=== PATIENT | male | born 1985 | race Caucasian/White ===

== ENCOUNTER 2021-04-14 08:25 | Inpatient (IN) | payer OTHER ==
[~2021-04-14 08:25] MED LIST: Dexamethasone 4 MG/ML SDV ONE; Glycopyrrolate 0.2 MG/ML 5 ML MDV ONE; Neostigmine Methylsulfate 1 MG/ML 5 ML Syringe ONE; Ondansetron 4 MG/2 ML SDV ONE; Propofol 200 MG/20 ML SDV ONE; Rocuronium 50 MG/5 ML Vial ONE; Succinylcholine 200 MG/10 ML MDV ONE; cefOXitin 2 GM Vial ONE; fentaNYL 250 MCG/5 ML SDV ONE
[2021-04-14] MEDS ORDERED: Acetaminophen 500 MG Tab PO ONE (08:45)
[2021-04-14] MEDS ORDERED: Scopolamine 1.5 MG Transdermal Patch TOP ONE (08:45)
[2021-04-14] MEDS: Celecoxib 200 MG Cap PO SCH ×2 (08:52→15:14)
[2021-04-14] MEDS ORDERED: Dextrose 5%-Lactated Ringers 1,000 ML IV SCH ×2 (09:30→16:00)
[2021-04-14] MEDS ORDERED: cefOXitin 2 GM in Sodium Chloride 0.9% 50 ML IV ONE (10:00)
[2021-04-14] MEDS ORDERED: Ketamine 22 MG in Sodium Chloride 0.9% 19.78 ML IV SCH (10:15)
[2021-04-14] MEDS ORDERED: Ketamine 500 MG/5 ML MDV IV SCH (10:15)
[2021-04-14] MEDS ORDERED: fentaNYL 250 MCG/5 ML SDV ONE (11:35)
[2021-04-14] MEDS ORDERED: Lactated Ringers 1,000 ML ONE (11:52)
[2021-04-14] MEDS ORDERED: Rocuronium 50 MG/5 ML Vial ONE (12:06)
[2021-04-14] MEDS ORDERED: Labetalol 20 MG/4 ML Syringe ONE (12:26)
[2021-04-14] MEDS ORDERED: hydrOXYzine HCL 100 MG/2 ML SDV IM ONE (14:11)
[2021-04-14] MEDS ORDERED: fentaNYL 100 MCG/2 ML SDV IVPUSH ONE (14:11)
[2021-04-14] MEDS ORDERED: Insulin Lispro 100 Unit/ML 3 ML KwikPen SUBCUT ONE (14:15)
[2021-04-14] MEDS ORDERED: 50% Dextrose in Water 50 ML Syringe IVPUSH PRN (14:15)
[2021-04-14] MEDS ORDERED: Glucagon,Human Recombinant 1 MG Vial IM PRN (14:15)
[2021-04-14] MEDS ORDERED: HYDROmorphone 0.5 MG/0.5 ML Syringe IVPUSH PRN (15:05)
[2021-04-14] MEDS ORDERED: HYDROmorphone 1 MG/ML Syringe IV PRN (15:07)
[2021-04-14] MEDS ORDERED: hydrOXYzine HCL 100 MG/2 ML SDV IM PRN (15:08)
[2021-04-14] MEDS ORDERED: Cyclobenzaprine 10 MG Tab PO PRN (15:58)
[2021-04-14] MEDS ORDERED: traMADol 50 MG Tab PO PRN (16:00)
[2021-04-14] MEDS ORDERED: Metoclopramide 10 MG/2 ML SDV IVPUSH PRN (16:00)
[2021-04-14] MEDS ORDERED: Pantoprazole 40 MG Vial IVPUSH SCH (16:00)
[2021-04-14] MEDS ORDERED: Acetaminophen 500 MG Tab PO PRN (16:00)
[2021-04-14] MEDS ORDERED: Labetalol 20 MG/4 ML Syringe IVPUSH PRN (16:00)
[2021-04-14] MEDS ORDERED: diphenhydrAMINE 50 MG/ML SDV IVPUSH PRN (16:00)
[2021-04-14] MEDS ORDERED: Calcium Gluconate 10% 1 GM/10 ML SDV IVPUSH PRN (16:00)
[2021-04-14] MEDS ORDERED: Ondansetron 4 MG/2 ML SDV IVPUSH PRN (16:00)
[2021-04-14] MEDS ORDERED: Lactated Ringers 1,000 ML IV SCH (16:30)
[2021-04-14] MEDS: Insulin Lispro 100 Unit/ML 3 ML KwikPen SUBCUT SCH ×2 (16:31→21:31)
[2021-04-14] MEDS: cefOXitin 2 GM in Sodium Chloride 0.9% 50 ML IV SCH ×2 (16:47→21:31)
[2021-04-14] MEDS: oxyCODONE 5 MG Tab PO PRN (17:29)
[2021-04-14] MEDS ORDERED: MVI, Adult with Vitamin K 10 ML, Thiamine 200 MG, Zinc/Copper/Manganese/Selenium 1 ML i... IV SCH ×4 (18:00)
[2021-04-14] MEDS ORDERED: Heparin Sodium 5,000 Units/ML Vial SUBCUT SCH (18:00)
[2021-04-14] MEDS: Heparin Sodium 5,000 Units/ML Vial SUBCUT SCH (18:33)
[2021-04-14] MEDS ORDERED: Ketorolac 30 MG/ML SDV IM ONE (21:16)
[2021-04-14] MEDS: Acetaminophen 500 MG Tab PO SCH (22:08)
[2021-04-15] MEDS: Heparin Sodium 5,000 Units/ML Vial SUBCUT SCH ×3 (01:40→17:00)
[2021-04-15] MEDS: oxyCODONE 5 MG Tab PO PRN ×2 (03:48→11:41)
[2021-04-15] MEDS: cefOXitin 2 GM in Sodium Chloride 0.9% 50 ML IV SCH ×4 (04:00→21:13)
[2021-04-15] MEDS: Acetaminophen 500 MG Tab PO SCH ×3 (06:00→21:11)
[2021-04-15] MEDS ORDERED: Iopamidol 612 MG/ML 50 ML SDV PO STA ×2 (06:26→06:52)
[2021-04-15] MEDS ORDERED: Ondansetron 4 MG Tab.DIS PO PRN (06:29)
--- NOTE | 2021-04-15 07:27 | PN ---
DATE OF SERVICE: 04/15/2021 SUBJECTIVE: Ge is postop day 1. Upper GI was normal. Vital signs have been normal. Low-grade temperature of 99.7, his temperature max. He has been up ambulating and using his incentive spirometer. Intake 500. Urine output 2750. JACQUI drain put out 150 mL of a light pink drainage. Blood sugars since admission have been 214, 226, 281, 266 and his last one was 269. Remainder of review of systems negative for any pertinent positives or negatives. OBJECTIVE: GENERAL: Ge Aguirre is a pleasant 36-year-old male. He is alert and orientated. HEENT: Negative. NECK: Supple. HEART: Regular rate and rhythm. LUNGS: Clear. ABDOMEN: Dressing dry and intact. Abdominal binder is on. JACQUI drain intact. EXTREMITIES: Without peripheral edema. ASSESSMENT: Diagnostic laparoscopy with: 1. Laparoscopic Roverto-en-Y gastric bypass surgery. 2. Liver biopsy. 3. Repair of diaphragmatic hernia. 4. Excision of mediastinal lipoma. POSTOPERATIVE DIAGNOSES: 1. Morbid obesity. 2. Hepatomegaly. 3. Diaphragmatic hernia. 4. Mediastinal lipoma. Date of procedure 04/14/2021. Surgeon: Avelino Jules MD. PLAN: 1. Change lactated Ringers to 100 mL per hour. 2. Discontinue D5 LR. 3. May shower. 4. Step-2 gastric bypass diet with no cereal. 5. Communication order, 3 med cups per hour, to record at bedside. 6. Atarax 50 mg q.4 hours p.r.n. pain per energy protocol. 7. Zofran 4 mg ODT q.4 hours p.r.n. nausea. Discontinue continuous pulse ox, discontinue telemetry. 8. We will evaluate p.r.n. or in a.m. Fadumo Monique PA-C /[id number]
[2021-04-15] MEDS: Celecoxib 200 MG Cap PO SCH ×2 (08:08→21:11)
[2021-04-15] MEDS: SCOPOLAMINE PATCH CHECK TOP SCH (08:21)
--- NOTE | 2021-04-15 09:48 | CR ---
UGI Limited HISTORY: Postbariatric surgery FINDINGS: Patient swallowed water-soluble contrast. Upright views of the abdomen show no evidence of extravasation or obstruction. There is a surgical drain in the left upper quadrant IMPRESSION: Status post bariatric surgery No extravasation or obstruction seen
[2021-04-15] MEDS: Insulin Lispro 100 Unit/ML 3 ML KwikPen SUBCUT SCH ×4 (10:00→21:20)
[2021-04-15] MEDS: hydrOXYzine HCl 25 MG Tab PO PRN ×2 (10:12→21:09)
[2021-04-15 10:28] LABS: HEMOGLOBIN A1C 9.1 % (4.5-6.2)
[2021-04-15] MEDS: Lactated Ringers 1,000 ML IV SCH (11:44)
[2021-04-15] MEDS ORDERED: MVI, Adult with Vitamin K 10 ML, Thiamine 200 MG, Zinc/Copper/Manganese/Selenium 1 ML i... IV SCH ×4 (16:00)
[2021-04-15] MEDS ORDERED: Pantoprazole 40 MG Delayed-Release Granules 1 Packet PO SCH (16:00)
--- NOTE | 2021-04-15 16:44 | PCM.EKG ---
#1 Interpretation EKG Date: 04/14/21 Time: 09:53 Rhythm: NSR Rate (Beats/Min): 74 [place]: Normal P-Wave: Present QRS: Normal ST-T: Normal QT: Normal ME/PQ Interval: normal Comparison: NA - No Prior EKG
[2021-04-16] MEDS: Heparin Sodium 5,000 Units/ML Vial SUBCUT SCH ×2 (02:56→10:55)
[2021-04-16] MEDS: cefOXitin 2 GM in Sodium Chloride 0.9% 50 ML IV SCH ×2 (03:01→10:55)
[2021-04-16] MEDS: Insulin Lispro 100 Unit/ML 3 ML KwikPen SUBCUT SCH ×2 (04:18→10:55)
[2021-04-16] MEDS: Lactated Ringers 1,000 ML IV SCH (04:37)
[2021-04-16] MEDS: Acetaminophen 500 MG Tab PO SCH (05:39)
[2021-04-16] MEDS: SCOPOLAMINE PATCH CHECK TOP SCH (08:23)
[2021-04-16] MEDS: Celecoxib 200 MG Cap PO SCH (08:23)
[2021-04-16] MEDS ORDERED: Cyanocobalamin (Vitamin B12) 1,000 MCG/ML SDV IM ONE (09:00)
--- NOTE | 2021-04-16 10:09 | DISCH ---
ADMISSION DIAGNOSES: 1. Morbid obesity. 2. BMI of 50. 3. Diabetes type 2. DISCHARGE DIAGNOSES: Diagnostic laparoscopy with: 1. Laparoscopic Roverto-en-Y gastric bypass surgery. 2. Liver biopsy. 3. Repair of diaphragmatic hernia. 4. Excision of mediastinal lipoma. POSTOPERATIVE DIAGNOSES: 1. Morbid obesity. 2. Hepatomegaly. 3. Diaphragmatic hernia. 4. Mediastinal lipoma. Date of procedure: 04/14/2021. Surgeon: Avelino Jules MD. HISTORY: Ge Aguirre is a 36-year-old male with longstanding history of morbid obesity and increasing comorbidities. After preoperative evaluation and discussion of possible risks and possible complications, he wished to proceed with surgical procedure. HOSPITAL COURSE: Ge had his surgery on 04/14/2021. He had no operative complications. On postoperative day #1, he was started on step 2 gastric bypass diet. His IV was decreased. His blood sugars were 214, 226, 281, 266. On postoperative day #2, his pain was well controlled. His activity was good. Blood sugars were 159, 157, 157. He received adequate dietary instruction. Vital signs were stable. Oral intake and output were adequate, and he was able to be discharged to home. PHYSICAL EXAMINATION: GENERAL: Ge Aguirre is a pleasant 36-year-old male. VITAL SIGNS: Height is 5 feet 10 inches, weight is 355 pounds. BMI is 50.9. TPR is 96, 75, 16. Blood pressure 113/46. HEENT: Negative. NECK: Supple. HEART: Regular rate and rhythm. LUNGS: Clear. ABDOMEN: Dressings dry and intact. JACQUI drain intact. This will be removed prior to discharge. Abdominal binder is on. EXTREMITIES: Without peripheral edema. DISPOSITION: Discharged to home. CONDITION: Stable and improving. FOLLOWUP: Followup appointment with Fadumo Monique PA-C, 04/27/2021 at [facility] at 9:15 a.m. HOME MEDICATIONS: 1. Hydroxyzine 50 mg p.o. q.4 hours p.r.n. pain, #30. 2. Zofran ODT 4 mg p.o. q.4 hours p.r.n., #30. Use as needed for nausea and vomiting. 3. Celebrex 200 mg p.o. b.i.d., #28. 4. Tylenol 1000 mg q.8 hours scheduled p.o. for 2 days, then may go p.r.n. DIET: Step 2 gastric bypass diet until 04/29/2021, to drink 8 to 10 glasses of water a day. ACTIVITY: No lifting greater than 10 pounds for 2 weeks. OTHER ACTIVITY: Walk 6 times daily inside your home. Driving: Do not drive for 1 week. Shower/bathing: May shower. Wound incision care: Keep operative site clean and dry. Wear abdominal binder for 2 weeks then as tolerated. Notify provider if any fever, increased pain, swelling, redness, drainage, nausea, or vomiting. SPECIAL INSTRUCTIONS: 1. Use incentive spirometer 10 times every hour while awake for 1 week. 2. Check blood sugars 3 times a day as needed. Bring record of blood sugars to clinic appointment. 3. Walk at least once for 3 minutes fdc on your ride home. /[id number]
--- NOTE | 2021-04-17 14:38 | OR ---
DATE OF PROCEDURE: 04/14/2021 SURGEON: Avelino Jules MD PREOPERATIVE DIAGNOSIS: Morbid obesity. POSTOPERATIVE DIAGNOSES: 1. Morbid obesity. 2. Marked hepatomegaly. 3. Paraesophageal diaphragmatic hernia. 4. Mediastinal lipoma. OPERATIVE PROCEDURE: Diagnostic laparoscopy with: 1. Laparoscopic Roverto-en-Y gastric bypass with long limb gastroenterostomy (05168). 2. Judson-Cut needle liver biopsy (65850). 3. Repair of paraesophageal diaphragmatic hernia (70516). 4. Excision of mediastinal lipoma (49942). ANESTHESIA: General. DATA ENTRY MANAGER: Fadumo Monique PA-C. INDICATIONS FOR PROCEDURE: This is a 36-year-old male presenting with longstanding morbid obesity and increasingly significant comorbidities. After preoperative evaluation and discussion, he wished to proceed with a gastric bypass procedure. Potential risks of the procedure including bleeding, infection, injury to underlying viscera, problems with bowel obstruction over time as well as possibility of cardiopulmonary, septic, or hemorrhagic complications leading to were discussed, and the patient wishes to proceed. DETAILS OF PROCEDURE: The patient was taken to the operating room and placed in a supine position. After general endotracheal anesthesia was induced, he was converted to a lithotomy position and the abdomen prepped and draped. At 15 cm inferior and 5 cm left of the xiphoid process, a transverse incision was made and the peritoneal cavity entered under direct vision with an Optiview trocar, inflated to 15 mmHg pressure with CO2. The laparoscope was reinserted and no underlying trocar insertion site injuries were seen. Bilateral transversus abdominis plane blocks were then placed and 5 additional trocars were placed across the upper and mid abdomen. The patient was noted to have marked hepatomegaly with liver being grossly fatty infiltrated. Judson-Cut needle biopsy was obtained from the left lobe of the liver. Minimal bleeding from the biopsy sites was controlled with electrocautery. The omentum was then divided in the midline up to the level of the transverse colon. This allowed identification of the small bowel with the ligament of Treitz. Small bowel was then traced out 125 cm distal to that point. It was divided transversely with a RODOLFO stapler. The small bowel was then traced out additional 150 cm where the [id number] enteroenterostomy was accomplished with internal firing of the Endo-RODOLFO 60 mm stapler. Common opening was then closed transversely with the same stapler and the anastomosis was reinforced with some 0 Vicryl sutures as well as fibrin sealant. The divided end of the Roverto limb was then from the mesentery for a few centimeters which allowed an antecolic position of the Roverto limb up to the level of the gastroesophageal junction without tension. The liver was then retracted anteriorly. The patient was noted to have a moderate-sized paraesophageal diaphragmatic hernia. The latter was reduced and the peritoneum reflected downward. During the course of the crural dissection, a mediastinal lipoma was encountered and this was excised to facilitate more adequate closure of the crura which was then accomplished anteriorly with some 0 Ethibond sutures reinforced with PTFE pledgets. The gastrointestinal balloon catheter was then inflated to 15 mL and pulled up snugly against the EG junction. The gastric wall over the apex balloon was then marked with electrocautery. The balloon catheter was then deflated and pulled up in the esophagus. The lesser omental tissue adjacent to the gastric cardia was then incised allowing dissection behind the stomach at that level. Pouch formation was then initiated with transverse firing of the RODOLFO stapler at the level of the cauterized judy in the gastric pouch and then continued with some additional firings of the RODOLFO stapler up to and through the angle of His. Upon completion of the pouch, both staple lines were noted to be intact. The anvil of the 25 mm EEA stapler was then attached to a [place] sump type tube. The latter was brought down through the mouth, and taken out through a small opening in the gastric pouch, allowing the anvil likewise to be pulled down to within the gastric pouch. The divided end of the Roverto-limb was then opened and the main body of the EEA stapler passed several centimeters into the lumen of the small bowel, brought up the anvil, united with it, thus creating the gastrojejunostomy. Upon removal of the stapler, double donuts of mucosa were noted within it. The small bowel was closed off with a vascular staple line. The gastrojejunostomy was reinforced with some 3-0 Vicryl seromuscular stitch along with fibrin sealant. Leak test was accomplished with injection of 120 mL of air in the gastric pouch while submerged with cefoxitin- containing saline solution. No leaks were identified. A single Baljinder-Baker drain was taken out through the left lateral trocar site and positioned adjacent to the gastrojejunostomy and from there up into the splenic fossa. The trocars were then removed and the peritoneal cavity deflated. Incisions were closed with 4-0 Vicryl skin stitch along with fixation of the drain with the same stitch. The patient was taken to the recovery room in satisfactory condition. There were no evident complications. Physician assistant inventory manager, Fadumo Monique, played an essential role in assisting in this case, helping to position the patient, retract structures as needed as well as suturing and cutting sutures when indicated. Her presence improved patient safety and decreased the operative time. Avelino Jules MD /[id number]
== END 2021-04-16 10:45 | disposition home or self-care (01) | DRG 621 ==
LOC: JP.SDS 08:25 → EDSTATUS 08:30 → JP.MS 13:50
PROVIDERS: ADMIT Surgery; ATTEND Surgery
PROC: 0D164ZA Bypass Stomach to Jejunum, Percutaneous Endoscopic Approach (ICD-10-PCS; principal; 2021-04-14)
PROC: 0FB24ZX Excision of Left Lobe Liver, Percutaneous Endoscopic Approach, Diagnostic (ICD-10-PCS; 2021-04-14)
PROC: 0BQT4ZZ Repair Diaphragm, Percutaneous Endoscopic Approach (ICD-10-PCS; 2021-04-14)
PROC: 0JB63ZZ Excision of Chest Subcutaneous Tissue and Fascia, Percutaneous Approach (ICD-10-PCS; 2021-04-14)
DX: E66.01 Morbid (severe) obesity due to excess calories (principal); Z68.43 Body mass index [BMI] 50.0-59.9, adult; E11.9 Type 2 diabetes mellitus without complications; K44.9 Diaphragmatic hernia without obstruction or gangrene; D17.4 Benign lipomatous neoplasm of intrathoracic organs
CPT/HCPCS: 36415; 74240; 74240-26; 82947; 83036; 83735; 84100; 85027; 86850; 86900; 86901; 88304; 88307; 88313; 93005; A9270-GY; C9113; J0171; J0330; J0694; J1100; J1170; J1644; J1815; J1815-GY; J1885; J2405; J2704; J2710; J2795; J3010; J3410; J3411; J3420; J3490; J7120; J7121; Q9967